=== PATIENT | female | born 1980 | race Asian ===

== ENCOUNTER → 2016-05-10 | Outpatient (CLI) | payer BC ==
[~2016-05-10] MED LIST: ACET-1256 PO; ALBUAER19 INH; B-CO1CAP3 PO; CALC500C3 PO; CALCTAB7 PO; CLC100 PO; FLV1 PO; INSHNI SQ; LEVE250T PO; LEVE750T PO; MAGN250T8 PO; MAGN400T6 PO; MTR600X PO; OXYC-57 PO; PRENTAB26 PO
== END | disposition home or self-care (01) ==
LOC: C.LAB1850 08:15
PROVIDERS: ATTEND Obstetrics & Gynecology
DX: O99.350 Diseases of the nervous system complicating pregnancy, unspecified trimester (principal); G40.909 Epilepsy, unspecified, not intractable, without status epilepticus; O09.522 Supervision of elderly multigravida, second trimester

== ENCOUNTER → 2016-08-03 | Outpatient (CLI) | payer BC ==
[2016-08-03 14:56] LABS: URINE APPEARANCE CLEAR (CLEAR); URINE BILIRUBIN NEG (NEG); URINE COLOR DK YELLOW; URINE NITRITE NEG (NEG); URINE SPECIFIC GRAVITY 1.013 (1.000-1.030); UROBILINOGEN NEG (NEG)
[2016-08-03 15:07] LABS: MANUAL MICROSCOPIC REQUIRED? NO; REVIEW REQ? NO
== END | disposition home or self-care (01) ==
LOC: C.LABSPEC 14:06
PROVIDERS: ATTEND Obstetrics & Gynecology
DX: O09.522 Supervision of elderly multigravida, second trimester (principal); Z3A.00 Weeks of gestation of pregnancy not specified

== ENCOUNTER → 2016-09-23 | Outpatient (CLI) | payer BC | END | disposition home or self-care (01) | LOC: C.LABSPEC 16:20 | PROVIDERS: ATTEND Obstetrics & Gynecology | DX: O09.523 Supervision of elderly multigravida, third trimester (principal); Z3A.00 Weeks of gestation of pregnancy not specified ==

== ENCOUNTER 2016-10-15 05:49 | Inpatient (IN) | payer BC ==
[2016-10-14 15:28] VITALS: BMI 39.0
--- NOTE | 2016-10-14 16:11 | PAT Medication Instructions ---
Service Date Oct 14, 2016. Current Home Medication List Albuterol Inhaler (Ventolin Inhaler), 2 PUFFS INH UD B-Complex Vitamins (B Complex), 1 TABS PO DAILY Calcium Carbonate (Tums), 1 TAB PO PRN Calcium Carbonate-Vitamin D W/ (Caltrate 600 Plus), 1 TAB PO DAILY Folic Acid (Folic Acid), 4 TABS PO DAILY Insulin Human NPH (Humulin N), 30 UNITS SQ HS Levetiracetam (Keppra), 750 MG PO BID Levetiracetam (Keppra), 500 MG PO BID Magnesium Oxide (Mg Supplement (Magnesium), 1 TAB PO QAM Multivit/Min/Iron/Fol Ac/Pren ( Vitamin), 1 TAB PO DAILY Medication Instructions For Your Scheduled Surgery - Hold the following medications the morning of surgery: B-Complex Vitamins (B Complex), 1 TABS PO DAILY Calcium Carbonate (Tums), 1 TAB PO PRN Calcium Carbonate-Vitamin D W/ (Caltrate 600 Plus), 1 TAB PO DAILY Folic Acid (Folic Acid), 4 TABS PO DAILY Magnesium Oxide (Mg Supplement (Magnesium), 1 TAB PO QAM Multivit/Min/Iron/Fol Ac/Pren ( Vitamin), 1 TAB PO DAILY - Take the following medications the morning of surgery with a sip of water OTHERWISE NOTHING TO EAT OR DRINK AFTER MIDNIGHT: Levetiracetam (Keppra), 750 MG PO BID Levetiracetam (Keppra), 500 MG PO BID - Take the following medications as scheduled the night before surgery: Tylenol Insulin Human NPH (Humulin N) 15-20units Levetiracetam (Keppra), 750 MG PO BID Levetiracetam (Keppra), 500 MG PO BID If you have any questions please call us at [phone] or [phone] or [phone]
[2016-10-14 16:38] LABS: BASO % 0.1 %; BASO ABS # 0.01 K/uL (0-0.2); COMPLETE YES; EOS % 0.9 %; HEMATOCRIT 36.5 % (37-47); IG% 0.4 %; LYMPH % 16.1 %; LYMPH ABS # 1.59 K/uL (1.2-3.4); MEAN CELL VOLUME 82.4 fL (80-100); MEAN CORPUSCULAR HEMOGLOBIN 27.5 pg (25-34); MEAN CORPUSCULAR HGB CONC 33.4 g/dl (32-36); MEAN PLATELET VOLUME 12.1 fL (7.4-10.4); MONO % 6.4 %; NEUT % 76.1 %; PLATELET COUNT 137 K/uL (130-400); RED BLOOD COUNT 4.43 M/uL (4.2-5.4); WHITE BLOOD COUNT 9.87 K/uL (4.8-10.8)
[2016-10-14 16:44] LABS: BUN/CREATININE RATIO 18.7 (10-20); CALCIUM 8.7 mg/dl (8.5-10.1); CREATININE 0.62 mg/dl (0.60-1.20); POTASSIUM 4.1 mmol/L (3.5-5.1)
--- NOTE | 2016-10-14 17:42 | HISTORY & PHYSICAL EXAMINATION ---
DATE OF ADMISSION: 10/15/2016 PRINCIPAL DIAGNOSES: Intrauterine at 39 weeks, prior section for failure to progress, multiparity, and unwanted fertility. PROCEDURE: Repeat low transverse cervical section and bilateral tubal ligation. HISTORY OF PRESENT ILLNESS: The patient is a 36-year-old 3, para 1-0-1-1 white female, EDC of 10/21/2016; who presents at 39 weeks for repeat section and bilateral tubal ligation. has been complicated by chronic hypertension that preceded the . She also has insulin controlled gestational diabetes. She has had a laminectomy for lower lumbar spine disease; and epilepsy which has been well controlled with Keppra, although the dosing had to be increased to 1250 mg bid during the course of the . She is presenting for repeat section. First section was done because of failure to progress, and she is requesting bilateral tubal ligation for unwanted fertility and multiparity. She understands the risks of both procedures and is willing to proceed. PAST MEDICAL HISTORY: Epilepsy, chronic hypertension, ocular migraines, lumbar spine disease. MEDICATIONS: Keppra 1250 mg twice a day, Humulin and Humalog insulin, Proventil HFA inhaler as needed 1 puff every 4 hours, and vitamins. ALLERGIES: She has no known drug allergies. PAST SURGICAL HISTORY: She has had section in 2013, without complications. She has had a laminectomy done in 2010. OBSTETRICAL AND GYNECOLOGICAL HISTORY: Periods are every 28 days. No history of PID, VD or herpes. Pap smears have been within normal limits. In 2001 a miscarriage at 7 weeks, Cytotec induced. In 2012, for delivery of a viable female infant, 9 pounds 6 ounces at 41 and 5/7 weeks for failure to progress, no complications following that surgery. HISTORY: Blood type is B positive. Antibody screen is negative. Rubella is immune. RPR is nonreactive. Hepatitis is negative. HIV is negative. Chlamydia and GC are not detected. Glucola at 16 weeks was 159. Two-hour test was also abnormal. Panorama was done for triploidy and this was negative. Alpha-fetoprotein was also negative. Hemoglobin at 28 weeks is 11.7, hematocrit 35.4. 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 She has failed 2-hour Glucola at 16 weeks. Growth scans have been most recent; abdominal circumference is 47th percentile, estimated weight was 59th percentile. Nonstress tests have been reactive. Anatomy scan was complete and within normal limits. PHYSICAL EXAMINATION: VITAL SIGNS: Blood pressure is 120/64. GENERAL: She is a well-nourished, well-developed white female in no apparent distress. LUNGS: Clear to auscultation. HEART: Regular rate and rhythm. No murmurs or gallops. ABDOMEN: Gravid. No hepatosplenomegaly or masses palpable. Fundal height is 39 cm. PELVIC: Exam was declined and deferred. EXTREMITIES: With trace edema and no calf tenderness. ASSESSMENT: A 36-year-old with prior section for failure to progress, now presents for repeat section and bilateral tubal ligation. She understands the risks of both procedures and is willing to proceed. Please see the orders for further directions. MAMTA
[~2016-10-15] VITALS: Ht 172.7 cm; Wt 115.0 kg
[2016-10-15] VITALS (16 sets, daily range): BP systolic 89–119; BP diastolic 50–77; PULSE 53–66; TEMP 36.4–36.9; O2SAT 96–100; Ht 172.7 cm; Wt 115.0 kg
[~2016-10-15 05:49] MED LIST changes: -ACET-1256 PO; -CLC100 PO; -MAGN400T6 PO; -MTR600X PO; -OXYC-57 PO
[2016-10-15] MEDS ORDERED: LACTATED RINGER'S 1000ML 1,000 ML IV SCH (06:00)
[2016-10-15] MEDS ORDERED: CEFAZOLIN IV 3,000 MG in DEXTROSE 5% 50ML IV SCH (06:00)
[2016-10-15] MEDS ORDERED: CITRIC ACID/SODIUM CITRATE 15 ML UDC PO SCH (06:00)
[2016-10-15 06:16] LABS: BASO % 0.1 %; BASO ABS # 0.01 K/uL (0-0.2); COMPLETE YES; HEMATOCRIT 36.9 % (37-47); IG% 0.4 %; LYMPH ABS # 1.65 K/uL (1.2-3.4); MEAN CORPUSCULAR HEMOGLOBIN 27.8 pg (25-34); MEAN CORPUSCULAR HGB CONC 33.9 g/dl (32-36); MEAN PLATELET VOLUME 11.3 fL (7.4-10.4); MONO % 6.9 %; NEUT % 73.6 %; PLATELET COUNT 126 K/uL (130-400); WHITE BLOOD COUNT 9.16 K/uL (4.8-10.8)
[2016-10-15] MEDS ORDERED: LACTATED RINGER'S 1000ML 500 ML IV PRN (07:18)
[2016-10-15] MEDS ORDERED: NALOXONE HCL INJ 1 MG in SODIUM CHLORIDE 0.9% 1000ML 1,000 ML IV PRN (07:18)
[2016-10-15] MEDS ORDERED: SODIUM CHLORIDE 0.9% 1000ML 1,000 ML IV PRN (07:18)
[2016-10-15] MEDS ORDERED: NALOXONE HCL INJ 0.08 MG in SYRINGE 1.8 ML IV PRN (07:18)
--- NOTE | 2016-10-15 07:18 | History & Physical Bridge Note ---
H&P Re-Evaluation Bridge Note: I have examined the patient, reviewed the History & Physical and in the interval since the performance of the History & Physical I have noted the following changes of clinical significance: No changes noted
[2016-10-15] MEDS ORDERED: MoRPHine SULFATE 2 MG/ML CARP IV PRN (07:30)
[2016-10-15] MEDS ORDERED: NALBUPHINE HCL INJ 10 MG/ML AMP IV PRN (07:30)
[2016-10-15] MEDS ORDERED: ONDANSETRON INJ 2 MG/ML 2 ML VIAL IV PRN ×2 (07:30→23:30)
[2016-10-15] MEDS ORDERED: MoRPHine SULFATE PF 1 MG/ML 10 ML AMP/VIAL EPI PRN (07:30)
[2016-10-15] MEDS ORDERED: NALOXONE HCL 0.4 MG/1 ML VIAL/CARP IV PRN (07:30)
[2016-10-15] MEDS ORDERED: NO NARCOTICS OR SEDATIVES SCH (07:30)
[2016-10-15] MEDS ORDERED: EpHEDrine SULFATE INJ 50 MG/ML AMP IV PRN (07:30)
[2016-10-15] MEDS ORDERED: DiphenhydrAMINE HCL 50 MG/ML VIAL IV PRN ×2 (07:30→23:30)
--- NOTE | 2016-10-15 08:54 | Anesthesiology Progress Note ---
Anesthesia Post Op Note Date & Time Oct 15, 2016 at 08:54 Notes Mental Status: alert / awake / arousable, participated in evaluation Pt Amnestic to Procedure: Yes Nausea / Vomiting: adequately controlled Pain: adequately controlled Airway Patency, RR, SpO2: stable & adequate BP & HR: stable & adequate Hydration State: stable & adequate Anesthetic Complications: no major complications apparent
--- NOTE | 2016-10-15 09:06 | [facility] Post Operative Brief Note ---
Immediate Operative Summary Operative Date Oct 15, 2016. Pre-Operative Diagnosis Term , previous Caesarean section with desire for bilateral tubal ligation.Chronic hypertension, Gestational diabetes on insulin. Post-Operative Diagnosis same with delivery of living male child at 0805 Procedure(s) Performed Repeat low transverse Caesarean section and bilateral tubal ligation Surgeon Dr. Jaimee Freeman Doctor Of Podiatric Medicine Surgeon(s) Dr. Josey Wu Estimated Blood Loss 700 Findings normal tubes & ovaries, gravid uterus Fluids (cc crystalloids) 1800 Specimens a. placenta- hold b. cord blood specimen c. portion left fallopian tube d. portion right fallopian tube
[2016-10-15] MEDS ORDERED: MAGNESIUM HYDROXIDE SUSP 30 ML UDC PO PRN (09:15)
[2016-10-15] MEDS ORDERED: ALBUTEROL HFA 8 GM INHALER INH PRN (09:15)
[2016-10-15] MEDS ORDERED: LANOLIN OINT EXT PRN ×2 (09:15)
[2016-10-15] MEDS ORDERED: SENNA 8.6 MG TAB PO PRN (09:15)
[2016-10-15] MEDS: OXYTOCIN INJ 20 UNITS in LACTATED RINGER'S 1000ML 1,000 ML IV SCH ×2 (09:27→17:02)
--- NOTE | 2016-10-15 09:55 | OPERATIVE REPORT ---
DATE OF OPERATION: 10/15/2016 PREOPERATIVE DIAGNOSES: Intrauterine at 39 weeks, history of prior section, patient requesting repeat, history of insulin-controlled diabetes mellitus and just in the and chronic hypertension as well as seizure disorder, undesired fertility and multiparity. PROCEDURE: Repeat low transverse cervical section and bilateral modified Pati tubal ligation. ESTIMATED BLOOD LOSS: 700 mL ANESTHESIA: Subarachnoid block. SURGEON: Jaimee Staples M.D. CALL CENTER DIRECTOR: Josey Wu M.D. HISTORY: The patient is a 36-year-old 3, para 1-0-1-1 white female, EDC of 10/21/2016 who presents for repeat section at 39 weeks. Her first section was done for failure to progress at 41 weeks gestation. She is now requesting repeat section and bilateral tubal ligation for undesired fertility and multiparity. The also was complicated by insulin controlled gestational diabetes mellitus and chronic hypertension as well seizure disorder. She understands the risks of the procedure including risks for both ectopic and intrauterine pregnancies after the tubal and she is willing to proceed. GROSS FINDINGS: Uterus is gravid and consistent with a term in size. Bilateral ovaries and fallopian tubes are grossly normal. PROCEDURE: After the patient received adequate subarachnoid block, she was prepped and draped in usual sterile fashion. A low transverse skin incision was made through her prior scar and carried to the fascia with the same scalpel. The fascial incision was then extended with Garrison scissors and the edges were grasped with Kole clamps and the underlying rectus muscles bluntly and sharply dissected off the overlying fascia. The rectus muscles were bluntly divided along the midline, but they were also divided with Garrison scissors near the suprapubic attachment. Bladder was taken down with blunt dissection, the bladder flap was developed using Metzenbaum scissors and placed behind the bladder blade. Lower uterine segment was entered with the scalpel and extended transversely. The membranes were ruptured for clear fluid. The infant was delivered from the vertex presentation with moderate fundal pressure. Mouth and nasopharynx were suctioned upon delivery, rest of the delivered easily and was vigorously crying and moving all 4 limbs. Cord was clamped and cut and the infant was handed off to Dr. Romero who was in attendance as dining room tables set up attendant. The placenta was expressed manually and the uterus exteriorized and covered with a clean lap sponge. The uterine cavity was explored and found to be free of any placental tissue or membranes. The uterus was closed in 2 layers in a running locking imbricating fashion with 0 Monocryl. Hemostasis was noted to be excellent. Attention was then turned to the tubal ligation. The left fallopian tube was identified, followed to its fimbriated end. It was grasped in the mid portion with a [place] clamp. A knuckle of tube was developed with a tie of 3-0 plain catgut followed by suture ligature of the same. A knuckle of tube was removed and the ends of the remaining tubes cauterized. The right fallopian tube was identified similar fashion, grasped on the mid portion with a Nino clamp. A knuckle of tube was developed using a free tie of 3-0 plain catgut followed by suture ligature of the same. The knuckle of tube was then removed and the ends cauterized. After it was noted that there was excellent hemostasis at the tubal site and on the uterine incision, the uterus was placed back inside the abdominal cavity after irrigating the posterior cul-de-sac with normal saline. The tubal sites were then examined once more once they were intra-abdominal and both had excellent hemostasis. Some blood and clot were removed from the cul-de-sacs and from the anterior cul-de-sac and irrigation with normal saline was also done. The rectus muscles were brought together on the midline with individual stitches of 0 Monocryl. The fascia was then closed in a running fashion with 0 Vicryl. The skin edges were reapproximated using 4-0 Vicryl in a subcuticular manner. Urine was clear at the end of the case. The patient tolerated the procedure well and was stable upon arrival in recovery room. I attest to the content of the Intraoperative Record and any orders documented therein. Any exceptions are noted below. MAMTA
[2016-10-15] MEDS: KETOROLAC TROMETHAMINE 30 MG/ML VIAL IV. PRN ×2 (11:05→17:17)
[2016-10-15] MEDS: SIMETHICONE 80 MG CHEW PO SCH ×3 (12:46→20:39)
[2016-10-15] MEDS: DOCUSATE SODIUM 100 MG CAP PO SCH (20:39)
[2016-10-15] MEDS: LEVETIRACETAM 250 MG TAB PO SCH ×2 (20:40→20:41)
[2016-10-15] MEDS ORDERED: DC INTRASPINAL MORPHINE ONE (23:30)
[2016-10-15] MEDS ORDERED: MEPERIDINE HCL 50 MG/ML CARP IV PRN ×2 (23:30)
[2016-10-15] MEDS ORDERED: PROMETHAZINE HCL INJ 25 MG in SODIUM CHLORIDE 0.9% 50ML 50 ML IV PRN (23:30)
[2016-10-15] MEDS ORDERED: OXYCODONE/ACETAMINOPHEN 5-325 TAB PO PRN (23:30)
[2016-10-15] MEDS ORDERED: ZOLPIDEM TARTRATE 5 MG TAB PO PRN (23:30)
[2016-10-16] MEDS: KETOROLAC TROMETHAMINE 30 MG/ML VIAL IV. PRN ×2 (00:24→06:31)
[2016-10-16] MEDS: OXYTOCIN INJ 20 UNITS in LACTATED RINGER'S 1000ML 1,000 ML IV SCH (01:11)
[2016-10-16 03:50] VITALS: BP 92/54; PULSE 68; TEMP 36.6
--- NOTE | 2016-10-16 06:40 | Progress Note ---
Subjective Oct 16, 2016. Subjective conversation w/ patient, physical exam, lab review Ambulation: limited ambulation Voiding: no voiding problems Passing Gas: No Diet Tolerance: Regular Diet Lochia: Small Feeding Type: Breast Feeding Pain: controlled with pain meds Comment: Has a heavy feeling in her chest which is likely gas pain. no sob or chest pain. Objective Vital Signs Date Time Temp Pulse Resp B/P (MAP) Pulse Ox O2 Delivery O2 Flow Rate FiO2 10/16/16 03:50 36.6 68 18 92/54 (67) Room Air 10/15/16 23:55 36.9 66 18 94/63 (73) 99 Room Air 10/15/16 22:00 20 99 10/15/16 21:00 18 98 10/15/16 20:00 119/77 (91) 10/15/16 20:00 20 99 10/15/16 19:00 20 99 10/15/16 18:30 36.7 60 20 89/50 (63) 99 Room Air 10/15/16 18:00 20 99 10/15/16 17:00 20 100 10/15/16 16:40 106/76 (86) 10/15/16 16:00 20 97 10/15/16 15:30 97 Room Air 10/15/16 15:30 36.6 53 18 89/55 (66) Room Air 10/15/16 15:00 20 97 10/15/16 14:40 18 97 10/15/16 13:30 18 97 10/15/16 12:30 18 96 10/15/16 12:30 36.9 62 18 101/63 (76) 96 Room Air 10/15/16 12:30 Room Air 10/15/16 11:30 98 Room Air 10/15/16 11:30 17 98 10/15/16 11:30 36.4 62 17 109/69 (82) 98 Room Air Physical Exam General Appearance: WELL-APPEARING, WD/WN, NO APPARENT DISTRESS Respiratory/Chest: lungs clear, normal breath sounds Cardiovascular: regular rate, rhythm Abdomen: non tender, soft, + abnormal bowel sounds (decreased) Fundus: Firm, Tender (appropriate for post op), Relation to Umbilicus (at u) Incision Description: Clean, Dry & Intact Extremities: non-tender, normal inspection, + pedal edema (trace) Laboratory Results Last 24 Hours Test 10/16/16 06:00 Assessment and Plan Problem List Medical Problems: (1) New onset a-fib Status: Acute Post-, Post-Op Day#: 1 Continue Routine Care: Doing well. Encourage ambulation. adat. monitor chest pressure. routine care.
[2016-10-16] MEDS ORDERED: PRENATAL VITAMIN TAB PO SCH (08:00)
[2016-10-16] MEDS: LEVETIRACETAM 250 MG TAB PO SCH ×4 (08:04→19:43)
[2016-10-16] MEDS: PRENATAL VITAMIN TAB PO SCH (08:04)
[2016-10-16] MEDS: DOCUSATE SODIUM 100 MG CAP PO SCH ×2 (08:04→19:41)
[2016-10-16] MEDS: SIMETHICONE 80 MG CHEW PO SCH ×4 (08:04→19:41)
[2016-10-16 08:40] VITALS: BP 98/63; PULSE 73; TEMP 36.8
[2016-10-16] MEDS: OXYCODONE/ACETAMINOPHEN 5-325 TAB PO PRN ×3 (10:59→20:19)
[2016-10-16 15:30] VITALS: BP 143/75; PULSE 76; TEMP 36.8
[2016-10-16] MEDS ORDERED: IBUPROFEN 600 MG TAB ONE (15:53)
[2016-10-16] MEDS: IBUPROFEN 600 MG TAB PO PRN ×2 (15:56→20:18)
[2016-10-16] MEDS ORDERED: BISACODYL 5 MG TABEC ONE (19:37)
[2016-10-16] MEDS ORDERED: BISACODYL 5 MG TABEC PO ONE (22:00)
[2016-10-16 23:30] VITALS: BP 107/72; PULSE 82; TEMP 36.7; O2SAT 98; O2SAT 99
[2016-10-17] MEDS: IBUPROFEN 600 MG TAB PO PRN ×5 (01:27→21:48)
[2016-10-17] MEDS: OXYCODONE/ACETAMINOPHEN 5-325 TAB PO PRN ×4 (01:27→21:48)
[2016-10-17 06:23] LABS: BASO % 0.1 %; BASO ABS # 0.01 K/uL (0-0.2); COMPLETE YES; EOS % 1.2 %; IG% 0.5 %; LYMPH % 21.4 %; LYMPH ABS # 1.79 K/uL (1.2-3.4); MEAN CELL VOLUME 82.9 fL (80-100); MEAN CORPUSCULAR HEMOGLOBIN 27.5 pg (25-34); MEAN CORPUSCULAR HGB CONC 33.1 g/dl (32-36); MEAN PLATELET VOLUME 11.9 fL (7.4-10.4); MONO % 9.1 %; NEUT % 67.7 %; PLATELET COUNT 117 K/uL (130-400); RED BLOOD COUNT 3.86 M/uL (4.2-5.4); WHITE BLOOD COUNT 8.37 K/uL (4.8-10.8)
--- NOTE | 2016-10-17 07:10 | Progress Note ---
Subjective Oct 17, 2016. Subjective conversation w/ patient Voiding: no voiding problems Passing Gas: Yes Diet Tolerance: Regular Diet Lochia: Small Feeding Type: Breast Feeding Review of Systems Constitutional: No fever, No chills, No sweats, No weight loss, No weakness, No fatigue, No problem reported Breast: No see HPI, No breast lump, No change in shape, No nipple discharge, No breast pain, No problem reported Objective Vital Signs Date Time Temp Pulse Resp B/P (MAP) Pulse Ox O2 Delivery O2 Flow Rate FiO2 10/16/16 23:30 36.7 82 20 107/72 (84) 98 Room Air 10/16/16 23:30 99 Room Air 10/16/16 15:40 Room Air 10/16/16 15:30 36.8 76 20 143/75 (97) Room Air 10/16/16 08:40 36.8 73 20 98/63 (75) Room Air 10/16/16 08:40 Room Air Physical Exam General Appearance: WELL-APPEARING, NO APPARENT DISTRESS Abdomen: soft Fundus: Firm, Non-Tender, Relation to Umbilicus (2 below U) Incision Description: Clean, Dry & Intact Extremities: no calf tenderness Laboratory Results Last 24 Hours Test 10/17/16 06:00 White Blood Count 8.37 K/uL Red Blood Count 3.86 M/uL Hemoglobin 10.6 g/dL Hematocrit 32.0 % Mean Corpuscular Volume 82.9 fL Mean Corpuscular Hemoglobin 27.5 pg Mean Corpuscular Hemoglobin Concent 33.1 g/dl Platelet Count 117 K/uL Mean Platelet Volume 11.9 fL Neutrophils (%) (Auto) 67.7 % Lymphocytes (%) (Auto) 21.4 % Monocytes (%) (Auto) 9.1 % Eosinophils (%) (Auto) 1.2 % Basophils (%) (Auto) 0.1 % Neutrophils # (Auto) 5.67 K/uL Lymphocytes # (Auto) 1.79 K/uL Monocytes # (Auto) 0.76 K/uL Eosinophils # (Auto) 0.10 K/uL Basophils # (Auto) 0.01 K/uL RDW Standard Deviation 45.9 fL RDW Coefficient of Variation 15.1 % Immature Granulocyte % (Auto) 0.5 % Immature Granulocyte # (Auto) 0.04 K/uL Assessment and Plan Problem List Medical Problems: (1) New onset a-fib Status: Acute Post-, Post-Op Day#: 2 Continue Routine Care: stable post-op course continue current care plan
[2016-10-17] MEDS ORDERED: OXYC-57 PO (07:36)
[2016-10-17] MEDS ORDERED: CLC100 PO (07:36)
[2016-10-17] MEDS ORDERED: MTR600X PO (07:36)
--- NOTE | 2016-10-17 07:40 | Discharge Instructions ---
Discharge Instructions Date of Service Oct 17, 2016. Admission Reason for Admission: Previous Section, Desires Sterilization Discharge Discharge Diagnosis / Problem: recovery from section Discharge Goals Goal(s): Routine recovery after Medications Continue Dispensed Medications: lansinoh Activity Recommendations Activity Limitations: per Instructions/Follow-up section . Instructions / Follow-Up Instructions / Follow-Up ACTIVITY RECOMMENDATIONS: * Gradual return to full activity over the next 2-3 weeks. * No lifting - nothing heavier than baby over the next 2-3 weeks. * Do not engage in vigorous exercise, sexual activity or sports until cleared by your physician. * Do not drive or operate any motorized equipment until cleared by your physician. * You may shower/bathe daily. MEDICATIONS: For discomfort or pain, you may use Acetaminophen (Tylenol), Ibuprofen (Advil), or Naproxen (Aleve) following the package directions. For constipation you may use Colace following the package directions. BREAST CARE: If you are not breast feeding: * Wear a supportive bra 24 hours a day for one to two weeks. * Avoid stimulating your breasts and nipples as much as possible during the first few weeks after delivery. * When taking a shower, have the warm water hit your back, not breasts. * When your breasts feel full, apply ice packs. Usually three to four times a day helps ease the discomfort. * Take a mild pain medication (Tylenol / Motrin) when you are uncomfortable. If breast feeding: * Use breast milk to lubricate nipples. Lansinoh cream may be used for sore nipples. You do not need to remove cream prior to breast feeding. If using a different brand of cream, check the label for directions regarding removal of cream prior to nursing. * Wear a supportive bra. * If having problems with breasts or breast feeding, call a alliances consultant or your health care provider. SPECIAL CARE INSTRUCTIONS: When you are discharged from the hospital, it is important for you to follow the instructions listed below: * During the first week at home, you should be able to care for yourself and your baby. In addition, the usual light household activities are encouraged. * Limit your activities to the way you feel. Do not try to clean the house or move furniture. Be sensible. * If you actively engage in sports and have done so up until the time of your delivery, you may resume these activities as soon as you feel able. This may take up to one month or even longer. Use good judgment. * Continue to take your vitamins for at least six weeks after the of your baby. * Your diet need not be limited unless you were on a special diet before your delivery. Breast-feeding mothers need around 2500 calories per day and at least 64-80 ounces of fluid per day (8 to 10 glasses). * You should eat foods from the four major food groups. Crash diets or fad diets are to be avoided. Eating lean meats, fresh fruits and vegetables, low-fat dairy products, high fiber foods and a regular exercise program, will help you get back to your pre- weight without putting your health at risk. * Constipation is sometimes a problem after delivery. Take a mild laxative as needed. If breast feeding, Milk of Magnesia is acceptable to use. You may use a suppository or Fleets enema. * A daily shower or tub bath is suggested. Wash incision daily with warm soapy water and pat dry. It doesn't need to be covered unless drainage is present. * A bloody vaginal discharge will usually continue until around four weeks . A small amount of bleeding may continue for as long as six weeks. Vaginal discharge changes from the bright red bleeding after delivery to pink then brownish and finally yellowish-pink before becoming white and disappearing. * Bleeding may increase with activity. Your first period may come in 4-8 weeks. If you are breast feeding, your period may be delayed even longer. * [employer] (sex) can begin whenever both you and your partner feel comfortable and do not have any form of genital infection. It is recommended that you wait at least six weeks for internal and external healing to occur. If you have questions, please talk to your health care practitioner. A condom should be used to prevent infection and . * Foreplay, gentle intercourse and lubrication is very important the first several times to prevent pain. A water-based lubricant such as K-Y jelly or Astroglide may be used. * If you have RH negative blood and your baby is RH positive, you will receive RHOGAM by injection prior to discharge. The nurse will give you a card to keep with you that has the date and place that you received RHOGAM after delivery. * During your care, you had a Rubella screen done to check for the presence of rubella antibodies in your blood. If your test was negative, you will receive a Rubella vaccine prior to discharge. This vaccine may cause a fever, soreness at the injection site and flu-like symptoms. If these symptoms persist, notify your health care practitioner. is not advised for one month after a Rubella vaccine. * Verbalizes understanding of car seat law as reviewed with patient nursing. * Car Seat hand-out given and reviewed with patient by nursing. * Shaken baby information reviewed with patient by nursing. Call you doctor if: * Heavy bleeding (saturating several pads an hour) or passing clots the size of your fist. * A fever >101 degrees F (38.3 degrees C) on two occasions four hours apart and /or chills. * Unusual pain in the pelvic or vaginal areas. * Call the doctor for any increased redness, drainage or swelling around the incision and any pain unrelieved by prescribed pain medication. * "Baby Blues" lasting longer than two weeks. If you have any questions or concerns, call your health care practitioner at . FOLLOW UP VISIT: * Please call the office at to schedule a 6 week examination. It is important you keep this appointment. It is important for you to make arrangements for either yearly or twice yearly check-ups thereafter. Current Hospital Diet Patient's current hospital diet: Regular OB Diet Discharge Diet Recommended Diet: Regular OB Diet Procedures Procedures Performed: Repeat low transverse Caesarean section and bilateral tubal ligation Pending Studies Studies pending at discharge: no Medical Emergencies . Who to Call and When: Medical Emergencies: If at any time you feel your situation is an emergency, please call [phone] immediately. . Non-Emergent Contact Non-Emergency issues call your: Wet Mix Operator . . "Provider Documentation" section prepared by Jaimee Elizabeth. . VTE Core Measure Inpt VTE Proph given/why not?: Treatment not indicated
[2016-10-17] MEDS: DOCUSATE SODIUM 100 MG CAP PO SCH ×2 (08:20→19:34)
[2016-10-17] MEDS: PRENATAL VITAMIN TAB PO SCH (08:20)
[2016-10-17 08:25] VITALS: BP 128/70; PULSE 89; TEMP 37.2
[2016-10-17] MEDS: SIMETHICONE 80 MG CHEW PO SCH ×4 (08:34→19:34)
[2016-10-17] MEDS: LEVETIRACETAM 250 MG TAB PO SCH ×4 (08:34→19:35)
[2016-10-17 17:15] VITALS: BP 98/62; PULSE 65; TEMP 36.9; O2SAT 99
[2016-10-17 23:25] VITALS: BP 113/75; PULSE 74; TEMP 36.6
[2016-10-18] MEDS: OXYCODONE/ACETAMINOPHEN 5-325 TAB PO PRN ×2 (02:14→07:21)
[2016-10-18] MEDS: IBUPROFEN 600 MG TAB PO PRN ×2 (02:15→07:19)
[2016-10-18 08:00] VITALS: BP_SYST 110; PULSE 67; TEMP 36.5
[2016-10-18] MEDS: DOCUSATE SODIUM 100 MG CAP PO SCH (08:56)
[2016-10-18] MEDS: LEVETIRACETAM 250 MG TAB PO SCH ×2 (08:56)
[2016-10-18] MEDS: PRENATAL VITAMIN TAB PO SCH (08:56)
[2016-10-18] MEDS: SIMETHICONE 80 MG CHEW PO SCH (08:57)
[2016-10-18 13:45] VITALS: BP_DIAS 75; PULSE 67; TEMP 36.5
--- NOTE | 2016-10-18 14:28 | DISCHARGE SUMMARY ---
PRINCIPAL DIAGNOSES: Intrauterine at 39 weeks, prior section, permanent sterilization for undesired fertility and multiparity. PRINCIPAL PROCEDURE: Repeat low transverse cervical section and bilateral tubal ligation. HISTORY: The patient is a 36-year-old 3, para 1-0-1-1 white female, EDC of 10/21/2016 who presented for repeat section at 39 weeks. Her first section had been done for failure to progress at 41 weeks. She was requesting repeat section. This was done without complications. She also is requesting permanent sterilization and she also underwent a bilateral tubal ligation. She has had an uncomplicated postop course. She has been eating a regular diet on her 1st postop day, ambulating and urinating without difficulty. She has remained afebrile throughout her hospital course. Hemoglobin on admission was 12.2, hematocrit 36.5. First postop day, hemoglobin is 12.5, hematocrit 36.9. Third postop day hemoglobin is 10.6, hematocrit is 32.0. The patient is being sent home in good condition with prescriptions for Percocet 1 or 2 tablets p.o. q.4 hours p.r.n. pain, Motrin 600 mg p.o. q.4 hours pain. She is to be seen in the office in 6 weeks for a followup visit. She is to call for a temperature of 101 degrees or higher, heavy vaginal bleeding, burning with urination, increased redness, drainage or pain in her incision, calf tenderness or any other concerns. MAMTA
[2016-10-20] MEDS ORDERED: IBUPROFEN 600 MG TAB PO PRN (23:59)
== END 2016-10-18 13:45 | disposition home or self-care (01) | DRG 765 ==
LOC: C.LD 05:49 → C.OBG 11:14 → EDSTATUS 16:17
PROVIDERS: ADMIT Obstetrics & Gynecology; ATTEND Obstetrics & Gynecology
PROC: 0UB70ZZ Excision of Bilateral Fallopian Tubes, Open Approach (ICD-10-PCS; principal; 2016-10-15 07:30)
PROC: 10D00Z1 Extraction of Products of Conception, Low, Open Approach (ICD-10-PCS; principal; 2016-10-15 07:30)
DX: O34.211 Maternal care for low transverse scar from previous cesarean delivery (principal); O10.02 Pre-existing essential hypertension complicating childbirth; O99.354 Diseases of the nervous system complicating childbirth; G40.909 Epilepsy, unspecified, not intractable, without status epilepticus; N85.8 Other specified noninflammatory disorders of uterus; O24.424 Gestational diabetes mellitus in childbirth, insulin controlled; O90.89 Other complications of the puerperium, not elsewhere classified; R07.9 Chest pain, unspecified; Z37.0 Single live birth; Z3A.39 39 weeks gestation of pregnancy; Z30.2 Encounter for sterilization; Z64.1 Problems related to multiparity; Z79.4 Long term (current) use of insulin; Z79.899 Other long term (current) drug therapy

== ENCOUNTER → 2016-10-19 | Outpatient (CLI) | payer BC ==
[~2016-10-19] MED LIST changes: -CALC500C3 PO; +CLC100 PO; -FLV1 PO; -INSHNI SQ; +MTR600X PO; +OXYC-57 PO
--- NOTE | 2016-10-19 16:32 | DIAGNOSTIC IMAGING REPORT ---
ULTRASOUND RIGHT VENOUS DOPP LOWER EXT UNILAT CLINICAL HISTORY: Right lower extremity swelling COMPARISON STUDY: May 07, 2016 FINDINGS: Real-time and color flow Doppler imaging were performed. Flow was seen within the femoral, popliteal and calf veins with no intraluminal thrombus demonstrated. The saphenous vein is patent. IMPRESSION: No evidence of right lower extremity DVT. Electronically signed by: Armond Russell M.D. 10/19/2016 4:31 PM Dictated Date/Time: 10/19/2016 4:30 PM
== END | disposition home or self-care (01) ==
LOC: C.ULTR 15:55
PROVIDERS: ATTEND Obstetrics & Gynecology
DX: M79.89 Other specified soft tissue disorders (principal)

== ENCOUNTER → 2016-11-03 | Outpatient (CLI) | payer BC ==
--- NOTE | 2016-11-03 14:55 | ECHOCARDIOGRAM REPORT ---
*NOTICE TO RECEIVING [employer] This information is strictly Confidential and protected under [place] law. [place] law prohibits you from making any further disclosure of this information unless further disclosure is expressly permitted by the written consent of the person to whom it pertains or is authorized by law. A general authorization for the release of medical or other information is not sufficient for this purpose. Hospital accepts no responsibility if the information is made available to any other person, INCLUDING THE PATIENT. Interpretation Summary * Name: RAVINDER MONTEZ Study Date: 11/03/2016 12:59 PM BP: 123/48 mmHg * Patient Location: [facility] HR: 55 * : 1980 (M/d/yyyy) Gender: Female Height: 68 in * Age: 36 yrs Ethnicity: Weight: 230 lb * Ordering Physician: Jairo Weldon * Referring Physician: Jairo Weldon PA-C * Performed By: Laurel Urbina R[facility] * * Reason For Study: BRADYCARDIA * BSA: 2.2 m2 * -- Conclusions -- * Normal study. Procedure Details * A complete two-dimensional transthoracic echocardiogram was performed (2D, M-mode, Doppler and color flow Doppler). Left Ventricle * The left ventricle is normal in size. * There is normal left ventricular wall thickness. * Ejection Fraction = 55-60%. * Left ventricular systolic function is normal. * No segmental left ventricular wall motion abnormalities are noted. * The left ventricular wall motion is normal. Right Ventricle * The right ventricular cavity size is normal (basal dimension <4.2 cm in right ventricular apical 4-chamber view). * The right ventricular systolic function is normal as assessed by tricuspid annular plane systolic excursion (TAPSE) (normal >1.5 cm). Atria * The left atrial size is normal. * Right atrial size is normal. * No ASD detected; PFO is not assessed. Mitral Valve * The mitral valve is normal in structure and function. Tricuspid Valve * The tricuspid valve is normal in structure and function. Aortic Valve * The aortic valve is not well visualized. * No hemodynamically significant valvular aortic stenosis. * There is no significant aortic regurgitation. Pulmonic Valve * The pulmonary valve is not well seen, but the Doppler examination is normal without significant regurgitation or stenosis. Great Vessels * The aortic root is normal size. Pericardium/Pleural * There is no pericardial effusion. Left Ventricular Diastolic Function * Pulse wave TDI of the anterior and posterior mitral annulas demonstrates normal LV relaxation MMode 2D Measurements and Calculations IVSd 1.3 cm IVSs 1.4 cm LVIDd 4.4 cm LVIDs 3.2 cm LVPWd 1.2 cm LVPWs 1.4 cm IVS/LVPW 1.1 FS 27.7 % EDV(Teich) 87.7 ml ESV(Teich) 40.4 ml EF(Teich) 54.0 % EDV(cubed) 85.2 ml ESV(cubed) 32.2 ml EF(cubed) 62.2 % % IVS thick 4.5 % % LVPW thick 17.6 % LV mass(C)d 206.6 grams LV mass(C)dI 95.3 grams/m\S\2 LV mass(C)s 151.9 grams LV mass(C)sI 70.0 grams/m\S\2 SV(Teich) 47.3 ml SI(Teich) 21.8 ml/m\S\2 SV(cubed) 53.0 ml SI(cubed) 24.5 ml/m\S\2 Ao root diam 2.7 cm Ao root area 5.6 cm\S\2 ACS 2.0 cm LA dimension 3.2 cm LA/Ao 1.2 LVOT diam 1.9 cm LVOT area 2.8 cm\S\2 LVAd ap4 28.8 cm\S\2 LVLd ap4 7.7 cm EDV(MOD-sp4) 87.9 ml EDV(sp4-el) 90.8 ml LVAs ap4 18.2 cm\S\2 LVLs ap4 6.8 cm ESV(MOD-sp4) 40.6 ml ESV(sp4-el) 41.4 ml EF(MOD-sp4) 53.9 % EF(sp4-el) 54.4 % LVAd ap2 36.9 cm\S\2 LVLd ap2 9.3 cm EDV(MOD-sp2) 119.7 ml EDV(sp2-el) 124.8 ml LVAs ap2 22.3 cm\S\2 LVLs ap2 7.6 cm ESV(MOD-sp2) 53.0 ml ESV(sp2-el) 55.5 ml EF(MOD-sp2) 55.7 % EF(sp2-el) 55.5 % LVLd %diff 16.5 % EDV(MOD-bp) 112.7 ml LVLs %diff 10.4 % ESV(MOD-bp) 48.8 ml EF(MOD-bp) 56.7 % SV(MOD-sp4) 47.3 ml SI(MOD-sp4) 21.8 ml/m\S\2 SV(MOD-sp2) 66.7 ml SI(MOD-sp2) 30.8 ml/m\S\2 SV(MOD-bp) 63.9 ml SI(MOD-bp) 29.4 ml/m\S\2 SV(sp4-el) 49.4 ml SI(sp4-el) 22.8 ml/m\S\2 SV(sp2-el) 69.3 ml SI(sp2-el) 32.0 ml/m\S\2 Doppler Measurements and Calculations MV E max hamida 97.6 cm/sec MV A max hamida 43.7 cm/sec MV E/A 2.2 MV P1/2t max hamida 110.7 cm/sec MV P1/2t 92.5 msec MVA(P1/2t) 2.4 cm\S\2 MV dec slope 350.8 cm/sec\S\2 MV dec time 0.30 sec Ao V2 max 168.5 cm/sec Ao max PG 11.4 mmHg Ao max PG (full) 7.6 mmHg CATRACHITA(V,A) 1.6 cm\S\2 CATRACHITA(V,D) 1.6 cm\S\2 LV V1 max PG 3.8 mmHg LV V1 max 97.0 cm/sec PA V2 max 107.1 cm/sec PA max PG 4.6 mmHg TR max hamida 236.6 cm/sec
== END | disposition home or self-care (01) ==
LOC: C.CPL 12:38
PROVIDERS: ATTEND Physician Assistant
DX: R00.1 Bradycardia, unspecified (principal)

== ENCOUNTER → 2016-11-30 | Outpatient (CLI) | payer BC | END | disposition home or self-care (01) | LOC: C.PAPS 13:52 | PROVIDERS: ATTEND Obstetrics & Gynecology | DX: Z12.4 Encounter for screening for malignant neoplasm of cervix (principal) ==

== ENCOUNTER → 2017-03-22 | Outpatient (CLI) | payer BC ==
--- NOTE | 2017-03-22 14:56 | DIAGNOSTIC IMAGING REPORT ---
R HAND MIN 3 VIEWS ROUTINE HISTORY: 36 years-old Female [id number] Right hand [id number] acute right hand pain COMPARISON: None available TECHNIQUE: 3 views of the right hand FINDINGS: No acute fracture, dislocation or significant degenerative changes. Soft tissues are unremarkable without opaque foreign body. IMPRESSION: No acute bony abnormality. The above report was generated using voice recognition software. It may contain grammatical, syntax or spelling errors. Electronically signed by: Phuc Trevino M.D. 03/22/2017 2:55 PM Dictated Date/Time: 03/22/2017 2:53 PM
== END | disposition home or self-care (01) ==
LOC: C.RAD1850 14:34
PROVIDERS: ATTEND Nurse Practitioner Family
DX: M79.641 Pain in right hand (principal)